=== PATIENT | female | born 1940 | race Caucasian/White ===

== ENCOUNTER → 2017-10-11 | Outpatient (CLI) | payer MEDICARE, BC ==
[~2017-10-11] MED LIST: ALLEGRA 180MG180 MG PO; ALTACE 10MG TAB10 MG PO; ASPIRIN 32325 MG/TAB PO; B-12250 MCG PO; CARDIZEM CD 18180 MG PO; CIPRO 500MG TA500 MG PO; FLAGYL500 MG PO; FOLIC ACID0.4 MG PO; LIPITOR 10MG10 MG PO; MULTI VITAMINS1 TAB PO; NITROSTAT0.4 MG/TAB SL; OMEGA 31000 MG PO; REGLAN 5MG T5 MG/TAB PO; TOPROL XL 50MG50 MG PO; VITAMIN D1000 IU PO
== END ==
LOC: MC.RAD 09:56
DX: Z12.31 Encounter for screening mammogram for malignant neoplasm of breast (principal)

== ENCOUNTER 2018-12-29 16:56 | Observation (INO) | payer MEDICARE, BC ==
[2018-12-29] VITALS (11 sets, daily range): BP systolic 112–170; BP diastolic 34–57; PULSE 63–69; TEMP 97.5–98.9
[~2018-12-29] VITALS: Ht 147.3 cm; Wt 42.2 kg
[~2018-12-29 16:56] MED LIST changes: -OMEGA 31000 MG PO; +OMEGA-3 1000 MG1 CAP PO
--- NOTE | 2018-12-29 17:45 | NUR ---
Pt arrived to floor at this time with admissions staff, will get oriented to room and notify physician of arrival.
--- NOTE | 2018-12-29 19:10 | NUR ---
Bedside shift report given to ANDRES Wiley who will resume care. IV started to LFA. Resting in bed, ordered supper and awaiting delivery. Nightshift to resume care.
--- NOTE | 2018-12-29 21:31 | NUR ---
First unit of blood started at 60mL/hr. Remaining at bedside and explained to pt to let me know of any s/s of a reaction.
--- NOTE | 2018-12-29 21:49 | NUR ---
VS set by machine to take every 15min. After the first 15min, pt denies any s/s of reaction. Infusion rate increased to 150mL/hr. Tolerating well. Will continue to monitor. Call light within reach.
--- NOTE | 2018-12-29 23:41 | NUR ---
Up to BR with assist. Steady gait. First unit just completed. Tolerated well.
[2018-12-30 00:10] VITALS: BP 129/47; PULSE 66; TEMP 97.8
[2018-12-30 00:49] VITALS: BP 133/45; PULSE 69; TEMP 98.6
[2018-12-30 01:51] VITALS: BP 149/47; PULSE 66; TEMP 98.5
--- NOTE | 2018-12-30 01:57 | NUR ---
Assist pt to BR. Voids large amt. Denies any s/s reaction.
[2018-12-30 03:02] VITALS: BP 143/47; PULSE 66; TEMP 97.8
[2018-12-30 03:20] VITALS: BP 145/46; PULSE 65; TEMP 97.3
[2018-12-30 03:46] LABS: COLLECTION METHOD CLEAN CATCH
[2018-12-30 03:55] LABS: PH 8 (5-8); SQUAMOUS EPITHELIAL 0-2 /hpf; URINE APPEARANCE Clear; URINE BACTERIA Rare /hpf; URINE BILIRUBIN Negative (NEGATIVE); URINE BLOOD Negative (NEGATIVE); URINE COLOR Straw; URINE GLUCOSE Negative (NEGATIVE); URINE KETONE Negative (NEGATIVE); URINE LEUKOCYTE ESTERASE Negative (NEGATIVE); URINE NITRATE Negative (NEGATIVE); URINE PROTEIN(semi-quant) Negative (NEGATIVE); URINE RBC 0-2 /hpf; URINE UROBILINOGEN Negative (NEGATIVE); URINE WBC 0-2 /hpf
[2018-12-30 05:14] LABS: BASO # 0.1 (0.0-0.2); EOS # 0.2 (0.0-0.7); EOS % 3.1 % (0-4.0); GRAN # 4.1 (1.4-6.5); GRAN % 66.6 % (42.2-75.2); LYMPH # 0.9 (1.2-3.4); LYMPH % 14.5 % (20.0-51.0); MEAN CELL VOLUME 83 fl (80.0-100.0); MEAN CORPUSCULAR HGB CONC 34 g/dl (33.0-37.0); MEAN PLATELET VOLUME 8.9 fl (7.4-10.4); MONO # 0.9 (0.1-0.6); MONO % 14.5 % (1.7-9.3); PLATELET COUNT 271 K/mm3 (130-400); RED BLOOD COUNT 3.53 M/mm3 (4.10-5.30); REDCELL DISTRIBUTION WIDTH-CV 14.3 % (11.5-14.5)
[2018-12-30 05:18] LABS: HEMATOCRIT 29.2 % (37.0-47.0); HEMOGLOBIN 9.8 g/dl (12.5-16.0); MEAN CORPUSCULAR HEMOGLOBIN 28 pg (27.0-31.0)
[2018-12-30 05:24] LABS: CALCIUM 8.5 mg/dL (8.4-10.2); CREATININE, serum 0.85 (0.52-1.25); POTASSIUM 3.7 mmol/L (3.4-5.0)
--- NOTE | 2018-12-30 07:15 | NUR ---
Report received from ANDRES Wiley. PT in bed resting, feeling well, awaiting breakfast, will continue to monitor.
--- NOTE | 2018-12-30 08:22 | NUR ---
Transfused 2 units PRBC this shift. Tolerates well. NS 1000mL hung and infusing at 125mL/hr. Rest for a short time after blood completed. Took off coban from IV site as pt was complaining of the site hurting and once off felt much better. Ambulated to BR with SBA and steady gait. Report given to ANDRES Chris.
[2018-12-30 08:25] VITALS: BP 130/56; PULSE 69; TEMP 98.2
--- NOTE | 2018-12-30 09:00 | NUR ---
Assessment charted, pt feeling much better today. Resting in bed, tolerating PO well, anticipating dishcarge today. IVF to LF. Denies needs, will get discharge ready when orders recieved.
--- NOTE | 2018-12-30 10:05 | NUR ---
ESHA met with the patient and her Gustavo to discuss a discharge plan. The pt lives in [place] with Gustavo. The pt does not use DME and reports independence with ADLs. The pt's PCP is Dr. Charity Brush and receives medications from [facility] in [place]. The pt does not have advanced directives in the EMR but reports she is in the process of completing them. The pt plans to return home with transporation provided by Gustavo. There are no additional needs at this time.
--- NOTE | 2018-12-30 10:58 | NUR ---
Patient was very sleepy so I only stayed for a minute to offer support and spiritual care.
--- NOTE | 2018-12-30 12:02 | NUR ---
Discharge teaching completed at this time. Pt discharged with packet, will call Gonsalo's office for F/U on tuesday, reviewed and answered all questions. INT dc'd, tip intact. Pt escorted out by myself, left with all belongings, to drive home, criteria met.
== END 2018-12-30 11:30 | disposition home or self-care (01) ==
LOC: MEDICAL 16:56 → EUO 16:56 → MEDICAL 16:57 → EDSTATUS 17:26 → MEDICAL 12-30 11:30
PROVIDERS: ADMIT Student in an Organized Health Care Education/Training Program
DX: D64.9 Anemia, unspecified (principal); E87.1 Hypo-osmolality and hyponatremia; J44.9 Chronic obstructive pulmonary disease, unspecified; I25.10 Atherosclerotic heart disease of native coronary artery without angina pectoris; I10 Essential (primary) hypertension; E78.5 Hyperlipidemia, unspecified; Z79.82 Long term (current) use of aspirin; Z95.5 Presence of coronary angioplasty implant and graft; Z88.2 Allergy status to sulfonamides
CPT/HCPCS: G0378; G0379; J7030; J7050; P9016